=== PATIENT | female | born 1995 | race Caucasian/White ===

== ENCOUNTER 2017-03-16 00:22 | Emergency (ER) | payer SELFPAY ==
[~2017-03-16] VITALS: Ht 167.6 cm; Wt 56.8 kg
[2017-03-16 01:22] VITALS: BP 124/83
[2017-03-16] MEDS ORDERED: SODIUM CHLORIDE 0.9% 1,000 ML IV ONE (01:30)
== END 2017-03-16 01:50 | disposition home or self-care (01) ==
LOC: EMS 00:24
DX: R51 Headache (principal); F43.9 Reaction to severe stress, unspecified; F17.210 Nicotine dependence, cigarettes, uncomplicated
CPT/HCPCS: 81025; 99282